=== PATIENT | female | born 1990 | race Two or more races ===

== ENCOUNTER 2024-11-11 12:37 | Emergency (ER) | payer MEDICAID, SELFPAY ==
[2024-11-11] VITALS (25 sets, daily range): BP systolic 102–137; BP diastolic 71–95; PULSE 102–155; RESP 12–40; TEMP 36.8–39.2; O2SAT 93–100; BMI 24.9
--- NOTE | 2024-11-11 12:56 | XR_ITS ---
Examination: PA lateral chest 2 views TECHNIQUE: Upright PA lateral chest 2 views Exam date and time: November 11, 2024 1302 hours INDICATIONS: Fever nausea shortness of breath chest pain today. FINDINGS: Normal heart size Left mediastinal surgical clips Orthopedic support rods dorsal spine with prominent upper thoracic dextroscoliosis No pneumonia or pulmonary edema Old left-sided rib deformities IMPRESSION: No pneumonia or pulmonary edema
--- NOTE | 2024-11-11 13:25 | EKG_ITS ---
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
[2024-11-11] MEDS: ACETAMINOPHEN 500 MG TABLET 1000 MG PO (13:30)
--- NOTE | 2024-11-11 13:35 | XR_ITS ---
Examination: CT abdomen and pelvis without contrast. Coronal 3-D reconstructions. Sagittal 2-D reconstructions. Date and time of exam:November 11, 2024 1706 hours INDICATIONS: Onset left flank pain nausea vomiting fever beginning 2 days ago CTDI: vol (mGy): 6.82 DLP: (mGycm): 370 Technique: Axial images of the abdomen have been obtained, 3 mm slice thickness Intravenous contrast material has not been administered. Low dose protocols were performed. One or more of the following dose reduction techniques were used; automated exposure control, adjustment of the mA and/or KV according to patient size, use of iterative reconstruction technique. Findings: No visualized liver or splenic lesion Absent gallbladder Biliary stent satisfactory position with no intra or extrahepatic biliary tract dilatation Numerous bilateral renal calculi ranging in size from 1 to 6 mm Mild wall thickening pelvicalyceal systems and ureters, urinary tract infection appearance No significant hydronephrosis Aorta normal size Normal appendix No pericecal inflammatory change Suspicious for 21 mm right adnexal cyst 3 mm 8mm calculi in distribution of the distal right ureter and ureterovesical junction Moderate osteopenia with transpedicular fixation screws T12 and T11 partly visualized with orthopedic hardware extending more cephalad IMPRESSION: Numerous bilateral renal calculi 3 mm 8 mm calculi in distribution distal right ureter right ureterovesical junction although no significant right hydronephrosis Findings consistent with bilateral urinary tract infection
--- NOTE | 2024-11-11 13:36 | PD.EDFEVER ---
ED Fever RME/HPI General Chief Complaint: Fever Stated Complaint: FEVER, HEADACHE, RIGHT SIDE PAIN; CAN'T EAT Time Seen by Provider: 11/11/24 13:19 Arrival date/time: 11/11/24 12:37 RME / HPI RME / HPI Narrative: 34-year-old female patient with no significant past medical history, came in for evaluation regarding right flank pain. Patient's been having right flank pain for the last 2 days associated with fever, poor appetite, severity moderate. Patient denies any vomiting denies any nausea denies any dysuria frequency hematuria or other complaints. Related Data Allergies Allergy/AdvReac Type Severity Reaction Status Date / Time NKA* Allergy Uncoded 11/11/24 12:39 Review of Systems Review of Systems Narrative Review of Systems: Review of system reviewed and within normal limits except mentioned in HPI Physical Exam Narrative Physical exam: VITAL SIGNS: Reviewed. GENERAL APPEARANCE: Alert and interactive, follows commands, no acute distress, HEAD AND FACE: Non-traumatic. ENT: PERRL, pink conjunctivitis, eyelid no trauma, Mucous membrane moist. NECK: Supple, nontender, no nuchal rigidity. CHEST: No tenderness, no crepitus, no paradoxical movement, no retractions. LUNGS: Clear, well ventilated, symmetric, no rales, no wheezing, no ronchi, no stridor, good breath sounds bilaterally. HEART: Regular rate, regular rhythm, no murmur, no gallops. ABDOMEN: Soft, positive bowel sounds, nondistended, no guarding, nontender, no rebound, no masses, right CVA tenderness RECTAL: Deferred. GENITAL: Deferred. NEUROLOGICAL: Gross motor function intact sensory function intact, Appropriate for age. MUSCULOSKELETAL: low back nontender, full range of motion. EXTREMITIES: Nontender, full range of motion. SKIN: Color pink, dry, no rash, no lacerations, no abrasions, no contusions. LYMPHATICS: Deferred. Course Quality Measures none Orders Category Date Time Status Bedside COVID-19 Antigen Test NOW Care 11/11/24 12:56 Active Bedside Influenza A&B Antigen Test NOW Care 11/11/24 12:56 Completed COVID-19 Screening Questionnaire NOW Care 11/11/24 14:43 Active EKG (ED ONLY) *Do not use* NOW Care 11/11/24 13:25 Completed EKG (ED ONLY) *Do not use* NOW Care 11/11/24 16:[address] abdomen pelvis wo con Stat Exams 11/11/24 13:35 Completed EKG (ED Only) Stat Exams 11/11/24 13:25 Draft EKG (ED Only) Stat Exams 11/11/24 16:06 Ordered XR chest 2V Stat Exams 11/11/24 12:56 Completed Blood Culture (Lab) Stat Lab 11/11/24 13:40 Received CBC Stat Lab 11/11/24 13:35 Completed Comprehensive Metabolic Panel Stat Lab 11/11/24 13:35 Completed HCG Qualitative,Urine Stat Lab 11/11/24 16:23 Completed Lactate (Lactic Acid) Stat Lab 11/11/24 13:35 Completed PTH [Parathyroid Hormone Intact] Stat Lab 11/11/24 13:35 Completed Procalcitonin Stat Lab 11/11/24 13:35 Completed Urinalysis Stat Lab 11/11/24 16:23 Completed Urine Culture Stat Lab 11/11/24 16:23 Received Acetaminophen Tab [Tylenol ES Tab] Med 11/11/24 12:56 Discontinued 1,000 mg PO X1 ONE Acetaminophen Tab [Tylenol Tab] Med 11/11/24 20:27 Discontinued 975 mg PO X1 ONE Ketorolac Inj [Toradol Inj] Med 11/11/24 19:43 Discontinued 30 mg IVP X1 ONE Piper/Tazo 3.375 gm [Zosyn] Med 11/11/24 19:18 Discontinued 3.375 gm in 50 ml IV X1 Sodium Chloride 0.9% 1000 ml [Ns] 1,000 ml Med 11/11/24 12:56 Discontinued IV 999 mls/hr Sodium Chloride 0.9% 1000 ml [Ns] 1,000 ml Med 11/11/24 16:18 Discontinued IV 999 mls/hr Sodium Chloride 0.9% 1000 ml [Ns] 1,000 ml Med 11/11/24 19:42 Discontinued IV 999 mls/hr cefTRIAXone/D5w 1gm IV premix [Rocephin/D5w 1gm IV Med 11/11/24 13:35 Discontinued premix] 50 ml IV X1 Vital Signs Vital signs: Vital Signs Temperature 99.5 F 11/11/24 12:46 Pulse Rate 155 H 11/11/24 12:46 Respiratory Rate 19 11/11/24 12:46 Blood Pressure 137/89 H 11/11/24 12:46 Pulse Oximetry (%) 99 11/11/24 12:46 Oxygen Delivery Method Room Air 11/11/24 12:46 Fever MDM Narrative MDM Narrative:: 34-year-old female patient with no significant past medical history, came in for evaluation regarding right flank pain. Patient's been having right flank pain for the last 2 days associated with fever, poor appetite, severity moderate. Patient denies any vomiting denies any nausea denies any dysuria frequency hematuria or other complaints. Sepsis alert was initiated right away, laboratory workup significant for 19,000 WBC count, urinalysis positive for UTI, calcium was also noted to be 13.3, total bili of 2.2 parathyroid hormone was noted to be elevated. Procalcitonin was noted to be 3.39. CT scan of the abdomen and pelvis showed Numerous bilateral renal calculi 3 mm 8 mm calculi in distribution distal right ureter right ureterovesical junction although no significant right hydronephrosis Findings consistent with bilateral urinary tract infection Patient is to be transfer with urology on board. Care transferred to Dr. Adams at 11 PM for final disposition. Patient data External records reviewed:: None Clinical information provided by:: patient and family Social determinants that could affect healthcare access:: none Patient has the following chronic illnesses:: None How is presenting disease/condition affected by chronic disease/condition?: no chronic disease Evaluation data The following diagnostics were reviewed and interpreted by me:: lab results, radiology exam(s) and EKG tracing(s) Lab and/or radiology exams considered but not ordered:: None Interpretation Summary: EKG showed sinus tachycardia, ventricular rate of 144 bpm, no ST segment elevation depression noted laboratory workup significant for 19,000 WBC count, urinalysis positive for UTI, calcium was also noted to be 13.3, total bili of 2.2 parathyroid hormone was noted to be elevated. Procalcitonin was noted to be 3.39. CT scan of the abdomen and pelvis showed Numerous bilateral renal calculi 3 mm 8 mm calculi in distribution distal right ureter right ureterovesical junction although no significant right hydronephrosis Findings consistent with bilateral urinary tract infection Medications / Prescriptions Medications or Prescriptions considered but not ordered:: None Medication administrations:: Medication Administration History Discontinued Medications Acetaminophen (Acetaminophen 500 Mg Tablet) 1,000 mg PO X1 ONE Stop: 11/11/24 12:57 Last Admin: 11/11/24 13:30 Dose: 1,000 mg Documented By: STEPHEN Acetaminophen (Acetaminophen 325 Mg Tablet) 975 mg PO X1 ONE Stop: 11/11/24 20:28 Last Admin: 11/11/24 20:30 Dose: 975 mg Documented By: ED Sodium Chloride (Ns) 1,000 mls @ 999 mls/hr IV .Q1H1M ONE Stop: 11/11/24 13:56 Last Infusion: 11/11/24 14:52 Dose: Infused Documented By: Admin: 11/11/24 14:09 Dose: 999 mls/hr Documented By: KRISTEN Ceftriaxone Sodium/Dextrose (Rocephin/D5w 1gm Iv Premix) 50 mls @ 100 mls/hr IV X1 ONE Stop: 11/11/24 14:04 Last Infusion: 11/11/24 14:52 Dose: Infused Documented By: Admin: 11/11/24 14:25 Dose: 100 mls/hr Documented By: STEPHEN Sodium Chloride (Ns) 1,000 mls @ 999 mls/hr IV .Q1H1M ONE Stop: 11/11/24 17:18 Last Infusion: 11/11/24 19:00 Dose: Infused Documented By: Admin: 11/11/24 16:26 Dose: 999 mls/hr Documented By: STEPHEN Piperacillin/Tazobactam/Dextrose (Zosyn) 3.375 gm in 50 mls @ 100 mls/hr IV X1 ONE Stop: 11/11/24 19:47 Last Infusion: 11/11/24 20:38 Dose: Infused Documented By: Admin: 11/11/24 20:08 Dose: 100 mls/hr Documented By: ED Sodium Chloride (Ns) 1,000 mls @ 999 mls/hr IV .Q1H1M ONE Stop: 11/11/24 20:42 Last Infusion: 11/11/24 21:10 Dose: Infused Documented By: Admin: 11/11/24 20:09 Dose: 999 mls/hr Documented By: ED Ketorolac Tromethamine (Ketorolac Inj 30 Mg/Ml Vial) 30 mg IVP X1 ONE Stop: 11/11/24 19:44 Last Admin: 11/11/24 20:07 Dose: 30 mg Documented By: ED Patient received a total of 3 L IV fluids, IV ceftriaxone, I added IV Zosyn. Consultations Consultation(s) initiated? (list below): No Diagnosis Fever Differential Diagnosis: fever of unknown origin, pyelonephritis and other (Sepsis) Most likely diagnosis given after review of the tests above:: Sepsis secondary to urinary tract infection, with ureterolithiasis Admission Indicated Admission indicated?: not indicated (Needs to be transfer) Admission Request Was there a request for admission?: No Disposition Plan Disposition Plan: Transfer Discharge Plan Plan Patient Disposition: [facility] Acute Care Fac Prescriptions/Referrals Referrals: Dilip Bergman MD [Primary Care Provider] - In 1 week Problem List Clinical Impression: Sepsis, UTI (urinary tract infection), Ureterolithiasis Patient/Caregiver Discharge Instructions Print Language: Moroccan Stand Alone Forms: Lesly Award Info., Patient Portal Info Letter
[2024-11-11 13:54] LABS: Lactate (Lactic Acid) 1.8 mMol/L (0.4-2.0)
[2024-11-11 13:55] LABS: Basophils % (Auto) 0 % (0-2.5); Eosinophils % (Auto) 0 % (0-10); Hematocrit 44.8 % (36.0-46.0); Hemoglobin 15.2 g/dL (12.0-16.0); Immature Granulocytes % (Auto) 1 % (0-0); Immature Granulocytes Auto 0.17 Thou/mm3 (0.00-0.00); Lymphocytes # (Auto) 0.8 Thou/mm3 (1.0-4.8); Lymphocytes % (Auto) 4 % (10-50); Mean Corpuscular HGB Conc 33.9 g/dl (31.0-37.0); Mean Corpuscular Hemoglobin 29.7 pg (25.0-35.0); Mean Corpuscular Volume 88 fL (80-100); Monocytes # (Auto) 1.2 Thou/mm3 (0.0-0.8); Monocytes % (Auto) 6 % (0-12); Neutrophils # (Auto) 16.9 Thou/mm3 (1.8-7.7); Neutrophils % (Auto) 88 % (37-80); Nucleated Red Blood Cell % 0 /100 WBC (0); Platelet Count 155 Thou/mm3 (140-440); RDW Standard Deviation 44.7 fL (36.4-46.3); Red Blood Count 5.12 Miln/mm3 (4.00-5.20); White Blood Count 19.2 Thou/mm3 (3.6-11.0)
[2024-11-11] MEDS: SODIUM CHLORIDE 0.9% 1000 ML 1,000 ML 999 ML IV ×3 (14:09→20:09)
[2024-11-11 14:17] LABS: Alanine Aminotransferase 57 U/L (10-49); Albumin, Serum 5.2 gm/dL (3.5-5.0); Albumin/Globulin Ratio 1.7 (1.2-2.2); Alkaline Phosphatase 276 U/L (46-116); Anion Gap 11 (7-16); Aspartate Amino Transferase 29 U/L (0-34); BUN/Creatinine Ratio 11 Ratio (12-20); Bilirubin,Total 2.2 mg/dL (0.3-1.2); Blood Urea Nitrogen 10 mg/dL (9-23); Carbon Dioxide 20.2 mMol/L (20.0-31.0); Chloride 104 mMol/L (98-107); Creatinine (Component) 0.9 mg/dL (0.6-1.3); Estimated Creatinine Clearance 72.5 mL/min (>60); Glucose 127 mg/dL (74-106); Osmolality,Calculated 271 (275-295); Potassium 3.6 mMol/L (3.4-5.1); Procalcitonin 3.39 ng/ml (0.0-0.49); Sodium 135 mMol/L (136-145); Total Protein 8.2 gm/dL (5.7-8.2); eGFR > 60 See Note
[2024-11-11] MEDS: cefTRIAXone/D5w 1gm IV premix 50 ML IV (14:25)
[2024-11-11 15:04] LABS: Calcium 13.3 mg/dL (8.3-10.6)
[2024-11-11 15:05] LABS: Calcium (Corrected) 13.3 mg/dL (8.5-10.1)
[2024-11-11 16:28] LABS: Collection Type, Urine Clean Catch
[2024-11-11 16:37] LABS: HCG Qualitative,Urine Negative
[2024-11-11 16:43] LABS: Bacteria,Urine Rare; Bilirubin,Urine Negative (Negative); Blood,Urine 3+ (Negative); Color,Urine Yellow (Lt Yel-Yel); Glucose, Urine Negative (Negative); Ketones,Urine 1+ (Negative); Leukocyte Esterase,Urine Positive (Negative); Nitrite,Urine Negative (Negative); PH,Urine 6.5 (5.0-7.0); Protein,Urine 1+ (Neg - Trace); RBC,Urine 73 /hpf (0-3); Squamous Epithelial Cell,Urine 1 /hpf (0-5); WBC,Urine 198 /hpf (0-5)
[2024-11-11 17:02] LABS: Clarity,Urine Hazy (Clear/Hazy)
[2024-11-11] MEDS: KETOROLAC INJ 30 MG/ML VIAL IVP (20:07)
[2024-11-11] MEDS: PIPER/TAZO 3.375 GM 3.375 GM/50 ML BAG IV (20:08)
[2024-11-11] MEDS: ACETAMINOPHEN 325 MG TABLET 975 MG PO (20:30)
--- NOTE | 2024-11-11 23:13 | PC.NURSE ---
1480 RASHEL ABBOTT CONTACTED T SENT.
--- NOTE | 2024-11-11 23:14 | EDNOTE_ITS ---
Emergency Room Addendum <Tomeka Bergman - Last Filed: 11/12/24 05:08> Addendum Narrative: 2245: Care assumed from Evelin Esteban NP. Past medical, surgical, social and family history reviewed. Vitals and home medications reviewed. Results and treatment plan discussed. I will assume the care of the patient at this time and will follow the patient, pending transfer for urology. Please refer to the emergency department record for history and examination from initial visit. 2316: Patient is resting comfortably at this time and does not have any complaints. She awakens easily and communicates with me appropriately. 2321: Spoke with [facility] transfer center. They state [facility] is at capacity and they will present this case to [facility]. 2345: Spoke with Dr. Maqruez, Urologist from [facility], regarding transfer. States he will talk to the nurse from the transfer center and will let me know if he accepts the patient for transfer. 2350: Spoke with the transfer center, who states that Dr. Marquez feels the patient needs to go to a facility with IR in case the patient needs an emergent nephrostomy versus stent placed. 0415: Blood cultures are positive for gram negative rods. Repeat labs are not going to change the management of this patient. Calling for follow-up from [facility] regarding transfer. Patient is awake and talking. 0422: Spoke with [facility]'s transfer center. Awaiting a callback on whether or not the patient is accepted for transfer. 0433: Dr. Martin and Dr. Mercado, from [facility], accept the patient for ED-ED transfer. 0450: Ambulance requested. 0502: Blood pressure is currently stable at 116/86. Critical Care Time: 45 minutes The high probability of sudden, clinically significant deterioration in the patient?s condition required the highest level of my preparedness to intervene urgently. The services I provided to this patient were to treat and/or prevent clinically significant deterioration. Services included the following: chart data review, reviewing nursing notes and/or old charts, documentation time, project consultant collaboration regarding findings and treatment options, medication orders and management, direct patient care, vital sign assessments and ordering, interpreting and reviewing diagnostic studies and lab tests. Aggregate critical care time includes only time during which I was engaged in work directly related to the patient?s care, as described above, whether at bedside or elsewhere in the Emergency Department. It did not include time spent performing other reported procedures or the services of residents, students, nurses or physician assistants. <Ashlee Adams MD - Last Filed: 11/12/24 04:51> Addendum Narrative: 2245: Care assumed from Evelin Esteban NP. Past medical, surgical, social and family history reviewed. Vitals and home medications reviewed. Results and treatment plan discussed. I will assume the care of the patient at this time and will follow the patient, pending transfer for urology. Please refer to the emergency department record for history and examination from initial visit. 2316: Patient is resting comfortably at this time and does not have any complaints. She awakens easily and communicates with me appropriately. 2321: Spoke with [facility] transfer center. They state [facility] is at capacity and they will present this case to [facility]. 2345: Spoke with Dr. Marquez, Urologist from [facility], regarding transfer. States he will talk to the nurse from the transfer center and will let me know if he accepts the patient for transfer. 2350: Spoke with the transfer center, who states that Dr. Marquez feels the patient needs to go to a facility with IR in case the patient needs an emergent nephrostomy versus stent placed. 0415: Blood cultures are positive for gram negative rods. Repeat labs are not going to change the management of this patient. Calling for follow-up from [facility] regarding transfer. Patient is awake and talking. 0422: Spoke with [facility]'s transfer center. Awaiting a callback on whether or not the patient is accepted for transfer. 0433: Dr. Martin and Dr. Mercado, from [facility], accept the patient for ED-ED transfer. 0450: Ambulance requested.
--- NOTE | 2024-11-12 00:02 | PC.NURSE ---
Pt sleeping. Arouses easily. States she is feeling much better.
--- NOTE | 2024-11-12 00:22 | PC.NURSE ---
2345 [facility]LENA DECLINED DUE TO CAPACITY. 0015 [facility] ANETTE DECLINED AT THIS TIME. MEED IR.
--- NOTE | 2024-11-12 01:24 | PC.NURSE ---
0110 [facility] CONTACTED PKT SENT, IMAGES PUSHED.
[2024-11-12] MEDS: SODIUM CHLORIDE 0.9% 1000 ML 1,000 ML 999 ML IV (02:00)
[2024-11-12 02:24] VITALS: BP 112/78; PULSE 92; RESP 18; TEMP 36.5; O2SAT 99
[2024-11-12 03:43] VITALS: TEMP 37.7
[2024-11-12] MEDS: ACETAMINOPHEN 325 MG TABLET 975 MG PO (03:43)
[2024-11-12 03:47] VITALS: BP 101/62; PULSE 95; RESP 16; TEMP 37.7; O2SAT 98
--- NOTE | 2024-11-12 04:40 | PC.NURSE ---
THIS PT IS IS ACCEPTED TO [facility] BY DR. MAYER/DR. ARCOS FROM UROLOGY. THIS IS A ER:ER BRAYAN AND NUMBER FOR REPORT IS [phone]. LAVONNE WAS THE FACILITY REP I SPOKE WITH FOR ACCEPTING INFORMATION.
[2024-11-12] MEDS: SODIUM CHLORIDE 0.9% 500 ML 500 ML 999 ML IV (04:53)
[2024-11-12 05:01] LABS: Lactate (Lactic Acid) 0.7 mMol/L (0.4-2.0)
[2024-11-12 05:05] VITALS: BP 119/75; PULSE 90; RESP 18; TEMP 37.7; O2SAT 99
--- NOTE | 2024-11-12 05:16 | PC.NURSE ---
VS WNL. pt denies pain and nausea.
--- NOTE | 2024-11-12 05:30 | PC.NURSE ---
report called to Trevor at [facility]. Pt is on her way via EMS.
== END 2024-11-12 05:34 | disposition short-term general hospital (02) ==
PROVIDERS: Nurse Practitioner Family; Nurse Practitioner Primary Care; Emergency Provider Emergency Medicine; PCP Family Medicine
DX: A41.9 Sepsis, unspecified organism (principal); N39.0 Urinary tract infection, site not specified; N20.2 Calculus of kidney with calculus of ureter; R06.02 Shortness of breath; R00.0 Tachycardia, unspecified; R07.9 Chest pain, unspecified; Z75.1 Person awaiting admission to adequate facility elsewhere
CPT/HCPCS: 36415; 71046; 74176; 80053; 81001; 81025; 83605; 83970; 84145; 85025; 87040; 87077; 87086; 87186; 87400; 87811; 93005; 96361; 96365; 96367; 96375; 99291; J0696; J1885; J2543; J7030; J7040; A9270

== ENCOUNTER 2024-12-05 19:57 | Emergency (ER) | payer MEDICAID, SELFPAY ==
[2024-12-05 19:58] VITALS: BMI 25.4
[2024-12-05 21:02] VITALS: BP 118/71; PULSE 86; RESP 18; TEMP 36.6; O2SAT 97
--- NOTE | 2024-12-05 21:17 | EKG_ITS ---
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
--- NOTE | 2024-12-05 21:17 | XR_ITS ---
Examination: PA chest single view Technique: Upright PA chest single view Exam date and time: December 01, 2024 20 0134 hrs. Indications: Chest pain beginning one week ago. Findings: Minimal prominence left ventricle No pneumonia or pulmonary edema Thoracic orthopedic support rods Impression: No active disease
--- NOTE | 2024-12-05 21:20 | PD.EDCHEST ---
ED Chest Pain RME/HPI General Chief Complaint: Chest Pain Stated Complaint: CHEST AREA PAIN Time Seen by Provider: 12/05/24 21:16 Source: patient Arrival date/time: 12/05/24 19:57 Mode of arrival: wheelchair Limitations: no limitations RME / HPI RME / HPI narrative: Dr. Thornton?s Main ED Evaluation: 34-year-old female who presents to the emergency department accompanied by her significant other for evaluation of intermittent chest pain over the past 1 to 2 weeks. She describes the pain as occurring on and off and reports associated symptoms of difficulty breathing and palpitations. During these episodes, she feels the need to take deep breaths to calm herself down and relax. The patient denies any respiratory symptoms such as cough, wheezing, or nasal congestion. She also denies gastrointestinal symptoms, including nausea or vomiting, and has not experienced fever, chills, or sore throat. She is not currently taking any medications and has no reported history of chronic medical conditions related to her symptoms. The patient notes that these episodes of chest pain and shortness of breath are likely exacerbated by stress. She has been experiencing ongoing situational crises involving her 17-year-old stepdaughtern. Related Data Allergies Allergy/AdvReac Type Severity Reaction Status Date / Time NKA* Allergy Uncoded 11/11/24 12:39 Review of Systems Review of Systems Systems Reviewed: All systems reviewed, normal except as documented Past Medical History Past Medical History CARDIAC: Negative Congestive Heart Failure RESPIRATORY: Negative Chronic Obstructive Pulmonary Disease (COPD) GENITOURINARY: Negative Renal Disease ENDOCRINE: Negative Diabetes Mellitus Type 1 or Diabetes Mellitus Type 2 Family History FAMILY HISTORY: Positive Family Cancer (PT'S AUNT HAD LEUKEMIA) Surgical History SURGICAL: Positive Section Social History SMOKING STATUS: Never smoker ED Exam Narrative Physical exam: GENERAL APPEARANCE: alert and oriented x 4, well-developed, well-nourished, no acute distress VITALS: All vitals were reviewed and the pulse ox is 97% on room air, which is normal according to my interpretation. HEENT: Normocephalic, atraumatic; pupils equal, round, reactive to light; EOMI; mucous membranes pink, moist; oropharynx clear NECK: Supple LUNGS: CTABL; no wheezes, no rales, no rhonchi HEART: Regular rate, regular rhythm; normal S1, S2; no murmurs ABDOMEN: non distended; normal BS; soft, no tenderness, no guarding, no rebound; no masses, no organomegaly, no hernia BACK: no CVA tenderness EXTREMITIES: atraumatic; no edema NEUROLOGIC: awake; alert and oriented x4; cranial nerves II-XII grossly intact; no focal sensory or motor deficits PSYCHIATRIC: appropriate mood and affect SKIN: warm, dry, normal color; no rashes General Limitations: Present no limitations Course Course Course Narrative: CXR is ordered for determining etiology of chest pain. Quality Measures none Orders Category Date Time Status EKG (ED ONLY) *Do not use* NOW Care 12/05/24 21:17 Completed EKG (ED Only) Stat Exams 12/05/24 21:17 Draft XR chest 1V portable Stat Exams 12/05/24 21:17 Taken Vital Signs Vital signs: Vital Signs Temperature 98 F 12/05/24 21:02 Pulse Rate 86 12/05/24 21:02 Respiratory Rate 18 12/05/24 21:02 Blood Pressure 118/71 12/05/24 21:02 Pulse Oximetry (%) 97 12/05/24 21:02 Oxygen Delivery Method Room Air 12/05/24 21:02 Chest Pain MDM Narrative MDM Narrative:: Scribe Attestation: Dwayne Abraham am scribing for and in the presence of Dr. Thornton. Provider Notation: Although this document has been carefully reviewed, there may still be some phonetic and other typographical errors. These errors are purely grammatical due to imperfections in the software program and should not be construed in any way to compromise the substance of the patient's medical care during this visit. Patient data External records reviewed:: [facility] previous records Clinical information provided by:: patient Social determinants that could affect healthcare access:: none Patient has the following chronic illnesses:: see PMH How is presenting disease/condition affected by chronic disease/condition?: uneffected by Evaluation data The following diagnostics were reviewed and interpreted by me:: lab results, radiology exam(s) and EKG tracing(s) Lab and/or radiology exams considered but not ordered:: n/a Interpretation Summary: The patient's EKG at 2124 demonstrated normal sinus rhythm (NSR) at a rate of 66 bpm with a normal axis and no ectopy. There were no signs of acute ischemia. The QRS duration measured 12 ms, and the corrected QT interval (QTc) was 373 ms. CXR shows normal cardiac silhouette, normal sharp diaphragmatic edge, no infiltrates, normal costophrenic angles, according to my interpretation. Medications / Prescriptions Medications or Prescriptions considered but not ordered:: n/a Medication administrations:: as above Consultations Consultation(s) initiated? (list below): No Diagnosis Chest Pain Differential Diagnosis: atypical chest pain, costochondritis, chest pain and biliary colic Most likely diagnosis given after review of the tests above:: Atypical chest pain, Heart palpitations, Stress at home Admission Indicated Admission indicated?: not indicated Admission Request Was there a request for admission?: No Disposition Plan Disposition Plan: Discharge Discharge Attestation Discharge Attestation: The patient and all family members were given an opportunity to ask questions and understood the discharge instructions. Discharge instructions specifically effects, indications for sooner follow up or return to the emergency department, and the expected course of current diagnosis. Patient condition: Stable Discharge Plan Plan Patient Disposition: HOME (Self Care) Disposition Comment: Stable for discharge Patient condition on transfer: Stable Prescriptions/Referrals Referrals: [facility] [Outside] - In 1 week Problem List Clinical Impression: Atypical chest pain, Heart palpitations, Stress at home Patient/Caregiver Discharge Instructions Discharge Activity: activity as tolerated Education Materials: How to Control Your Temper, Causes and Effects of Stress, Responding Better to Stress, ED Chest Pain, Noncardiac, ED Palpitations Additional Instructions: Please return to the emergency department for any worsening or any further medical problems. Otherwise you should follow-up with your primary care doctor within the next several days or you can call and be seen at the [facility] for follow-up. You need less stress in your life. Rather than arguing with your stepdaughter you should have conversations with her, spend time with her and find something in common with her. Print Language: Thai Stand Alone Forms: Lesly Award Info., Patient Portal Info Letter
[2024-12-05 21:58] VITALS: RESP 18
== END 2024-12-05 21:58 | disposition home or self-care (01) ==
PROVIDERS: Emergency Provider Emergency Medicine; PCP Family Medicine
DX: R07.89 Other chest pain (principal); F43.9 Reaction to severe stress, unspecified
CPT/HCPCS: 71045; 93005; 99283